=== PATIENT | male | born 1975 | race Caucasian/White ===

== ENCOUNTER 2021-12-07 18:27 | Observation (INO) ==
[2021-12-07] MEDS ORDERED: Iopamidol - 370 500 ML MLS IVP ONE (19:23)
[2021-12-07 19:34] LABS: Mean Corpuscular Volume 107.3 fL (83.0-100.0); Red Cell Distribution Width 12.4 % (11.5-14.5)
[2021-12-07 19:36] LABS: Basophils % 1.1 %; Eosinophils % 1.1 %; Hematocrit 46.8 % (37.5-50.1); Hemoglobin 16.2 g/dL (12.9-16.9); Immature Granulocytes % 0.8 % (0-4); Immature Platelets 2.2 % (1.1-6.1); Lymphocytes # 1.6 K/mcL (0.6-4.6); Lymphocytes % 42.5 %; Mean Corpuscular HGB Conc 34.6 g/dL (31.6-35.5); Mean Corpuscular Hemoglobin 37.2 pg (28.0-33.3); Mean Platelet Volume 8.6 fL (9.4-12.4); Monocytes # 0.3 K/mcL (0.0-1.3); Monocytes % 7.9 %; Neutrophils # 1.8 K/mcL (1.6-8.9); Platelet Count 98 K/mcL (140-400); Red Blood Count 4.36 M/mcL (4.19-5.50); Segmented Neutrophils % 46.6 %; White Blood Count 3.8 K/mcL (4.3-11.1)
[2021-12-07] MEDS ORDERED: Ipratropium/Albuterol Neb 3 ML IH ONE (19:36)
[2021-12-07] MEDS ORDERED: Albuterol 2.5 MG/3 ML NEBULIZER IH ONE (19:36)
[2021-12-07 19:54] LABS: Acetaminophen < 10 mcg/mL (10-20); Alanine Aminotransferase 71 Units/L (7-52); Albumin 4.2 g/dL (3.5-5.7); Albumin/Globulin Ratio 1.5 (1.1-2.2); Alkaline Phosphatase 60 Units/L (34-104); Aspartate Amino Transferase 78 Units/L (13-39); BUN/Creatinine Ratio 13 (6-26); Bilirubin,Total 0.2 mg/dL (0.3-1.0); Blood Urea Nitrogen 11 mg/dL (6-20); Calcium 8.6 mg/dL (8.6-10.3); Carbon Dioxide 23 mEq/L (23-29); Chloride 105 mEq/L (98-107); Ethanol 320 mg/dL (Less than 10); Globulin 2.8 g/dL (2.4-3.5); Glucose 175 mg/dL (70-105); Osmolality,Calculated 296 (280-300); Potassium 3.5 mEq/L (3.5-5.1); Salicylate < 2.5 mg/dL (15.0-30.0); Sodium 141 mEq/L (136-145)
[2021-12-07 20:05] LABS: Platelet Estimate Slight Decrease (Normal); Reactive Lymphocytes Present (Not Present); Stomatocytes 1+ (Not Present)
[2021-12-07] MEDS ORDERED: Ziprasidone 20 MG, Closed System Device IM Kit 1 EACH in Water for inj. (sterile) 1 ML IM ONE (20:53)
[2021-12-07] MEDS ORDERED: Ziprasidone 20 MG/VIAL VIAL IM ONE (21:42)
[2021-12-07] MEDS ORDERED: Water for inj. (sterile) 10 ML ONE (21:42)
[2021-12-08 00:47] LABS: Bilirubin,Urine Negative (Negative); Blood,Urine Negative (Negative); Clarity,Urine Clear (Clear); Color,Urine Colorless (Yellow); Glucose,Urine (UA) Normal (Normal); Ketones,Urine Negative (Negative); Leukocyte Esterase,Urine Negative (Negative); Nitrite,Urine Negative (Negative); PH,Urine 6.5 pH Units (5.0-8.0); Protein,Urine Negative (Neg-Trace); Specific Gravity,Urine 1.029 (1.010-1.025); Urobilinogen,Urine Normal (Normal)
[2021-12-08 00:57] LABS: Amphetamine Screen,Urine Negative ng/mL (Cutoff=1000); Barbiturate Screen,Urine Negative ng/mL (Cutoff=200); Benzodiazepines Screen,Urine Negative ng/mL (Cutoff=200); Cannabinoid Screen,Urine Negative ng/mL (Cutoff = 50); Cocaine Screen,Urine Negative ng/mL (Cutoff= 300); Opiate Screen,Urine Negative ng/mL (Cutoff=300); Phencyclidine Screen,Urine Negative ng/mL (Cutoff=25)
[2021-12-08] MEDS ORDERED: Ondansetron 4 MG/2 ML VIAL IVP ONE (01:02)
[2021-12-08] MEDS ORDERED: *HR* LORazepam 1 MG TABLET PO STA (03:42)
[2021-12-08] MEDS ORDERED: *HR* LORazepam 2 MG/ML VIAL IVP PRN ×3 (04:37)
[2021-12-08] MEDS: *HR* LORazepam 1 MG TABLET PO PRN ×4 (06:48→20:34)
[2021-12-08] MEDS ORDERED: 0.9 % Sodium Chloride 1,000 ML IVC ONE ×2 (10:53→12:48)
[2021-12-08] MEDS ORDERED: Nicotine 2 MG GUM BC PRN (12:58)
[2021-12-08] MEDS: Nicotine 14 MG PATCH.TD24 TD SCH (13:08)
[2021-12-08] MEDS ORDERED: Acetaminophen 325 MG TABLET PO ONE (14:51)
[2021-12-09] MEDS ORDERED: Ondansetron 4 MG/2 ML VIAL IVP PRN (00:01)
[2021-12-09] MEDS: *HR* LORazepam 1 MG TABLET PO PRN ×4 (01:33→20:16)
[2021-12-09] MEDS: Nicotine 14 MG PATCH.TD24 TD SCH (07:56)
[2021-12-09] MEDS ORDERED: Naloxone 0.4 MG/ML INJ IVP PRN (08:07)
[2021-12-09 09:09] LABS: Basophils # 0.1 K/mcL (0.0-0.2); Basophils % 0.9 %; Eosinophils % 0.5 %; Hematocrit 53.2 % (37.5-50.1); Immature Granulocytes % 0.7 % (0-4); Lymphocytes # 1.1 K/mcL (0.6-4.6); Lymphocytes % 15.1 %; Mean Corpuscular HGB Conc 34.6 g/dL (31.6-35.5); Mean Corpuscular Hemoglobin 36.6 pg (28.0-33.3); Mean Corpuscular Volume 105.8 fL (83.0-100.0); Mean Platelet Volume 9.1 fL (9.4-12.4); Monocytes # 0.8 K/mcL (0.0-1.3); Monocytes % 11.1 %; Neutrophils # 5.4 K/mcL (1.6-8.9); Platelet Count 126 K/mcL (140-400); Red Blood Count 5.03 M/mcL (4.19-5.50); Red Cell Distribution Width 12.1 % (11.5-14.5); Segmented Neutrophils % 71.7 %
[2021-12-09 09:19] LABS: Hemoglobin 18.4 g/dL (12.9-16.9); White Blood Count 7.5 K/mcL (4.3-11.1)
[2021-12-09 09:30] LABS: BUN/Creatinine Ratio 14 (6-26); Blood Urea Nitrogen 14 mg/dL (6-20); Calcium 10.2 mg/dL (8.6-10.3); Carbon Dioxide 26 mEq/L (23-29); Chloride 98 mEq/L (98-107); Glucose 108 mg/dL (70-105); Magnesium 1.9 mg/dL (1.6-2.6); Osmolality,Calculated 283 (280-300); Potassium 3.7 mEq/L (3.5-5.1); Sodium 136 mEq/L (136-145)
[2021-12-09] MEDS ORDERED: Ketorolac 30 MG/ML VIAL IVP ONE (10:17)
[2021-12-09] MEDS: *HR* LORazepam 0.5 MG TABLET PO SCH ×3 (10:20→20:16)
[2021-12-09] MEDS ORDERED: amLODIPine 5 MG TABLET PO SCH (16:15)
[2021-12-09] MEDS: Metoprolol XL (24 HR) Succ 25 MG TAB.ER.24H PO SCH (17:12)
[2021-12-09] MEDS: 0.9 % Sodium Chloride 1,000 ML IVC SCH ×3 (19:53→20:26)
[2021-12-09] MEDS ORDERED: Lactulose Oral Soln 20 GM/30 ML UDC PO SCH (21:00)
[2021-12-10] MEDS ORDERED: Ibuprofen 600 MG TABLET PO ONE (00:27)
[2021-12-10] MEDS: *HR* LORazepam 1 MG TABLET PO PRN ×3 (00:34→08:59)
[2021-12-10] MEDS: *HR* LORazepam 0.5 MG TABLET PO SCH (08:59)
[2021-12-10] MEDS: Metoprolol XL (24 HR) Succ 25 MG TAB.ER.24H PO SCH (08:59)
[2021-12-10] MEDS: Nicotine 14 MG PATCH.TD24 TD SCH (09:01)
[2021-12-10] MEDS: 0.9 % Sodium Chloride 1,000 ML IVC SCH (09:10)
[2021-12-10 11:37] VITALS: BP 119/73; PULSE 74; TEMP 98.1; O2SAT 94
== END 2021-12-10 13:23 | disposition home or self-care (01) ==
LOC: EMEROOARM 18:27 → 2ANU 18:27 → SUATTDRO 12-08 19:12 → 2NNU 12-08 20:57 → 3BNU 12-09 12:42
PROVIDERS: ADMIT Internal Medicine; ATTEND Registered Nurse